=== PATIENT | male | born 1975 | race African-American/Black ===

== ENCOUNTER → 2017-11-16 | Outpatient (CLI) | payer MEDICAID ==
[2017-11-16 15:13] LABS: ANION GAP 10 (6-14); BLOOD UREA NITROGEN 30 mg/dL (8-26); CALCIUM 9.1 mg/dL (8.5-10.1); CARBON DIOXIDE 29 mmol/L (21-32); CHLORIDE 99 mmol/L (98-107); GFR 100.1; GLUCOSE 104 mg/dL (70-99); POTASSIUM 3.8 mmol/L (3.5-5.1); SODIUM 138 mmol/L (136-145)
== END | disposition home or self-care (01) ==
LOC: SPEC 14:35
DX: E11.9 Type 2 diabetes mellitus without complications (principal); E87.1 Hypo-osmolality and hyponatremia; E23.0 Hypopituitarism; E03.8 Other specified hypothyroidism
CPT/HCPCS: 36415; 80048